=== PATIENT | female | born 1970 | race Caucasian/White ===

== ENCOUNTER 2024-02-16 09:23 | Outpatient (CLI) | payer OTHER, SELFPAY ==
--- NOTE | ~2024-02-16 | MR_ITS ---
Procedure: MR lumbar spine wo con Ordering provider: Jerry MartelMD History: . Sciatica, L side . Comparison: None. Technique: MRI thoracic spine without contrast. FINDINGS: SPINAL CORD: Normal. The cord ends at the level of L1. VERTEBRAL BODIES: Normal height and alignment. No compression fracture. Normal marrow signal. DISK SPACES: Normal. T12-L1: Normal. L1-L2: Normal. L2-L3: Thickened ligamenta flava. L3-L4 mild diffuse disc bulge. Slight narrowing of the foramina.. Annulus tear. Thickened ligamenta f lava. L4-L5: Mild spinal canal stenosis. Diffuse disc bulge with slight narrowing of the foramina. Thickene d ligamenta flava. Left facet joint disease. Annulus tear is noted. L5-S1: diffuse disc bulge with left posterolateral disc protrusion and mild spinal canal stenosis. An nulus tear is noted. Root compression in the left lateral recess is noted. PARASPINOUS SOFT TISSUES: Normal. IMPRESSION: No compression fracture. Multilevel degenerative disc disease with variable degrees of intervertebral foraminal narrowing and spinal canal stenosis. Reviewed, dictated and finalized at location A. MARKER IMPRESSION: No compression fracture. Multilevel degenerative disc disease with variable degrees of intervertebral fo raminal narrowing and spinal canal stenosis.
== END 2024-02-16 09:24 | disposition home or self-care (01) ==
LOC: MICIMG 09:26
PROVIDERS: PCP Family Medicine; Visit Provider Family Medicine
DX: M51.369 Other intervertebral disc degeneration, lumbar region without mention of lumbar back pain or lower extremity pain (principal); M48.061 Spinal stenosis, lumbar region without neurogenic claudication; M54.32 Sciatica, left side; M51.27 Other intervertebral disc displacement, lumbosacral region; M48.07 Spinal stenosis, lumbosacral region
CPT/HCPCS: 72148